=== PATIENT | male | born 1980 | race Caucasian/White ===

== ENCOUNTER 2016-08-07 07:14 | Day surgery (SDC) | payer OTHER ==
[~2016-08-07 07:14] MED LIST: LIDOCAINE W/ SODIUM BICARB 0.5 ML SYR ONE; Lactated Ringers 1,000 ML PRIMARY IV ONE; MIDAZOLAM 5 MG/1 ML ONE; fentaNYL Inj 100 MCG/2 ML VIAL ONE
--- NOTE | 2016-08-07 08:23 | GEN.OPNOTE ---
Colonoscopy Procedure Note Surgery Date: 08/07/16 Preoperative Diagnosis: Intermittent bright red blood per rectum. Postoperative Diagnosis: Intermittent bright red blood per rectum. Procedure: Complete colonoscopy. Surgeon: Parveen Loyola MD Anesthesia Provider: Gary Salamanca CRNA Anesthesia Type: MAC Indications: Patient with a history of intermittent bright red blood per rectum. He reports 2 days a month he'll see some blood on the toilet paper. Findings: Prep : [Excellent] Cecum : [Normal] Ascending : [Normal] Transverse : [Normal] Sigmoid : [Normal] Rectum : [Normal, a minimal hemorrhoids] Digital Rectal Exam : [No perianal pathology. Prostate of normal size and consistency.] A lubricated flexible colonoscope was inserted and passed to the blind end of the cecum. The blind end of the cecum and ileocecal valve were clearly seen. Air was aspirated as the scope was withdrawn. The entire colonoscopy was normal without polyp, tumor, neoplastic mass, infectious or inflammatory process. The scope was retroflexed in the rectum and there is some minimal internal hemorrhoidal tissue. The scope was straightened and withdrawn. Patient tolerated the procedure well without complication. He was taken to outpatient surgery in stable condition. Follow-up will be with my office on an as-needed basis. He probably doesn't need a colonoscopy until age 49.
[2016-08-07 08:58] VITALS: RESP 18; TEMP 97.7
== END 2016-08-07 08:45 | disposition home or self-care (01) ==
LOC: SDSC 07:14
PROVIDERS: ATTEND Surgery
DX: K62.5 Hemorrhage of anus and rectum (principal)
CPT/HCPCS: 45378; J2704; J3010; J2250; J7120